=== PATIENT | male | born 1945 | race Caucasian/White ===

== ENCOUNTER 2020-12-25 14:00 | Emergency (ER) | payer OTHER ==
[2020-12-25 15:14] LABS: INR 1.03 (0.9-1.2); PROTHROMBIN TIME 12.9 SECONDS (11.8-13.4)
[2020-12-25 15:15] LABS: PTT 40.9 SECONDS (24.4-34.7)
[2020-12-25 15:19] LABS: BASOPHIL 0.5 % (0-2); EOSINOPHIL 3.6 % (0-7); HCT 42.5 % (42.0-52.0); HGB 14.4 g/dl (13.2-18.0); MCH 30.8 pg (25.0-31.0); MCHC 33.9 g/dL (32.0-36.0); MONOCYTE 10.9 % (0-12); MPV 9.2 fL (6.0-9.5); NEUTROPHIL 69.5 % (41-80); NRBC 0; PLT 283 K/uL (150-400); RBC 4.67 M/uL (4.70-6.00); RDW 12.4 % (11.5-14.0); WBC 8.8 K/uL (4.0-10.5)
[2020-12-25 15:38] LABS: ALBUMIN 3.7 g/dL (3.4-5.0); ALKALINE PHOSHATASE 83 U/L (46-116); ALT 28 U/L (16-63); AST 21 U/L (15-37); BILIRUBIN - TOTAL 0.5 mg/dL (0.2-1.0); BUN 19 mg/dL (7-18); BUN/CREAT RATIO (CALC) 16.2 RATIO; CHLORIDE 106 mmol/L (98-107); CO2 (BICARBONATE) 26 mmol/L (21-32); CREATININE 1.17 mg/dL (0.67-1.17); GLOBULIN (CALCULATION) 3.4 g/dL; GLUCOSE 101 mg/dL (74-106); LIPASE 113 U/L (73-393); MAGNESIUM 2.2 mg/dL (1.8-2.4); POTASSIUM 4.4 mmol/L (3.5-5.1); TOTAL PROTEIN 7.1 g/dL (6.4-8.2)
== END 2020-12-25 17:15 | disposition home or self-care (01) ==
LOC: FER 14:00
PROVIDERS: Emergency Medicine
DX: G45.4 Transient global amnesia (principal); Z85.46 Personal history of malignant neoplasm of prostate
CPT/HCPCS: 36415; 70450; 71045; 80053; 83605; 83690; 83735; 84145; 84443; 84484; 85025; 85610; 85730; 93005; G0480